=== PATIENT | male | born 1965 | race Two or more races ===

== ENCOUNTER 2023-10-09 07:55 | Emergency (ER) | payer MEDICAID ==
[~2023-10-09] VITALS: Ht 175.3 cm; Wt 113.4 kg
[2023-10-09] MEDS ORDERED: IV NS 0.9% 1,000 ML BAG IV ONE (08:30)
[2023-10-09] MEDS ORDERED: FAMOTIDINE/PF INJ 20 MG/2 ML VIAL IV ONE ×2 (08:30→08:36)
[2023-10-09] MEDS ORDERED: ONDANSETRON HCL/PF 4 MG/2 ML VIAL IVP ONE (08:30)
[2023-10-09] MEDS ORDERED: MORPHINE SULFATE INJ 2 MG/ML DISP.SYRIN IV ONE (08:30)
[2023-10-09] MEDS ORDERED: ONDANSETRON HCL/PF 4 MG/2 ML VIAL ONE (08:35)
[2023-10-09] MEDS ORDERED: MORPHINE SULFATE INJ 2 MG/ML DISP.SYRIN ONE (08:35)
[2023-10-09 08:51] LABS: BASOPHILS # (AUTO) 0.1 K/uL (0.0-0.2); BASOPHILS % (AUTO) 0.4 % (0.0-2.0); EOSINOPHILS # (AUTO) 0.1 K/uL (0.0-0.7); EOSINOPHILS % (AUTO) 0.8 % (0.0-6.0); HEMATOCRIT 44 % (39-51); HEMOGLOBIN 14.9 g/dL (13.5-17.5); LYMPHOCYTES # (AUTO) 4.6 K/uL (0.8-4.8); LYMPHOCYTES % (AUTO) 31.8 % (20.0-44.0); MEAN CORPUSCULAR HEMOGLOBIN 29 PG (26.0-33.0); MEAN CORPUSCULAR HGB CONC 34 g/dl (31.0-36.0); MEAN CORPUSCULAR VOLUME 87 fL (80-96); MONOCYTES % (AUTO) 7.2 % (2.0-12.0); NEUTROPHILS # (AUTO) 8.6 K/uL (1.8-8.9); NEUTROPHILS % (AUTO) 59.8 % (43.0-81.0); PLATELET COUNT (AUTO) 230 K/uL (150-450); RED BLOOD CELL COUNT(AUTO) 5.08 MIL/uL (4.5-6.0); RED CELL DISTRIBUTION WIDTH 13.3 % (11.5-15.0); WHITE BLOOD COUNT (AUTO) 14.5 K/uL (4.3-11.0)
[2023-10-09 09:14] LABS: ALANINE AMINOTRANSFERASE 46 U/L (12-78); ALBUMIN 3.8 g/dL (3.4-5.0); ALKALINE PHOSPHATASE 106 U/L (46-116); ASPARTATE AMINOTRANSFERASE 22 U/L (15-37); BILIRUBIN,DIRECT 0.1 mg/dL (0.0-0.2); BILIRUBIN,TOTAL 0.4 mg/dL (0.2-1.0); CALCIUM, SERUM 8.8 mg/dL (8.5-10.1); CARBON DIOXIDE 23 mmol/L (21-32); CHLORIDE 101 mmol/L (98-107); CREATININE 0.8 mg/dL (0.6-1.3); GLUCOSE 168 mg/dL (74-106); LIPASE 28 U/L (16-77); POTASSIUM 3.3 mmol/L (3.5-5.1); SODIUM SERUM 138 mmol/L (136-145); TOTAL PROTEIN, SERUM 7.6 g/dL (6.4-8.2); UREA NITROGEN, BLOOD 13 mg/dL (7-18)
[2023-10-09] MEDS ORDERED: CIPR-262 PO (09:43)
[2023-10-09] MEDS ORDERED: METR500T PO (09:43)
[2023-10-09] MEDS ORDERED: CIPROFLOXACIN HCL 500 MG TABLET ONE (09:58)
[2023-10-09] MEDS ORDERED: METRONIDAZOLE 500 MG TABLET ONE (09:59)
[2023-10-09] MEDS ORDERED: CIPROFLOXACIN HCL 500 MG TABLET PO ONE (10:00)
[2023-10-09] MEDS ORDERED: METRONIDAZOLE 500 MG TABLET PO ONE (10:00)
[2023-10-09 11:01] VITALS: BP 136/82; TEMP 98.4; O2SAT 98
[2023-10-09 11:05] LABS: APPEARANCE,URINE CLEAR (CLEAR); BILIRUBIN,URINE NEGATIVE (NEGATIVE); BLOOD, URINE TRACE-INTA Ery/uL (NEGATIVE); COLOR,URINE YELLOW (YELLOW); KETONES,URINE NEGATIVE (NEGATIVE); LEUKOCYTE ESTERASE ,URINE NEGATIVE (NEGATIVE); NITRITE, URINE NEGATIVE (NEGATIVE); PH,URINE 5.5 (5.0-8.0); PROTEIN,URINE NEGATIVE (NEGATIVE); UGLUCOSE NEGATIVE (NEGATIVE); UROBILINOGEN,URINE 0.2 EU/dL (0.2)
[2023-10-09 11:18] LABS: ADD URINE CULTURE NO; BACTERIA,URINE None seen /HPF (None Seen); RBC,URINE 0-2 /HPF (0-2); SQUAMOUS EPITHELIAL CELL,UR Rare /HPF (None Seen); WBC,URINE 0-2 /HPF (0-3)
== END 2023-10-09 11:01 | disposition home or self-care (01) ==
LOC: ER 08:03
DX: K52.9 Noninfective gastroenteritis and colitis, unspecified (principal); R11.10 Vomiting, unspecified; I10 Essential (primary) hypertension; E78.00 Pure hypercholesterolemia, unspecified; J45.909 Unspecified asthma, uncomplicated
CPT/HCPCS: 99285; 74176; 96374; 96375; 96361; 93005; 85025; 80048; 87086; 83690; 80076; 81001; 36415; 84484; J3490; J2405; J7030; J2270

== ENCOUNTER 2023-10-10 07:35 | Emergency (ER) | payer MEDICAID ==
[~2023-10-10] VITALS: Ht 175.3 cm; Wt 68.5 kg
[~2023-10-10 07:35] MED LIST: CIPR-262 PO; METR500T PO
[2023-10-10] MEDS ORDERED: KETOROLAC TROMETHAMINE INJ 30 MG/ML VIAL IM ONE (08:30)
[2023-10-10] MEDS ORDERED: KETOROLAC TROMETHAMINE INJ 30 MG/ML VIAL ONE (08:52)
[2023-10-10 10:00] VITALS: BP 134/77; TEMP 98.1; O2SAT 97
== END 2023-10-10 10:00 | disposition home or self-care (01) ==
LOC: ER 07:51
DX: M25.511 Pain in right shoulder (principal); I10 Essential (primary) hypertension; E78.00 Pure hypercholesterolemia, unspecified; J45.909 Unspecified asthma, uncomplicated
CPT/HCPCS: 99283; 96372; 73030; J1885

== ENCOUNTER 2024-02-07 12:08 | Emergency (ER) | payer MEDICAID ==
[~2024-02-07] VITALS: Ht 175.3 cm; Wt 101.2 kg
[2024-02-07 13:24] VITALS: BP 138/72; TEMP 98; O2SAT 100
[2024-02-07] MEDS ORDERED: CETI1TAB9 PO (13:26)
[2024-02-07] MEDS ORDERED: AMOX-430 PO (13:26)
== END 2024-02-07 13:31 | disposition home or self-care (01) ==
LOC: ER 12:15
DX: J32.9 Chronic sinusitis, unspecified (principal); I10 Essential (primary) hypertension; E78.00 Pure hypercholesterolemia, unspecified; J45.909 Unspecified asthma, uncomplicated

== ENCOUNTER 2024-09-06 00:15 | Emergency (ER) | payer MEDICAID ==
[~2024-09-06] VITALS: Ht 152.4 cm; Wt 104.3 kg
[~2024-09-06 00:15] MED LIST changes: +AMOX-430 PO; +CETI1TAB9 PO
[2024-09-06 01:39] VITALS: BP 126/72; TEMP 98.3
[2024-09-06] MEDS ORDERED: KETOROLAC TROMETHAMINE INJ 30 MG/ML VIAL ONE (02:24)
[2024-09-06] MEDS: KETOROLAC TROMETHAMINE INJ 60 MG/2 ML VIAL IM ONE (02:45)
[2024-09-06 03:15] VITALS: O2SAT 97
== END 2024-09-06 03:16 | disposition home or self-care (01) ==
LOC: ER 00:18
DX: M25.511 Pain in right shoulder (principal); R07.81 Pleurodynia; I10 Essential (primary) hypertension; E78.00 Pure hypercholesterolemia, unspecified; J45.909 Unspecified asthma, uncomplicated; V87.8XXA Person injured in other specified noncollision transport accidents involving motor vehicle (traffic), initial encounter; Y93.55 Activity, bike riding; Y92.488 Other paved roadways as the place of occurrence of the external cause; Y99.8 Other external cause status
CPT/HCPCS: 99284; 96372; 71100; 73030; J1885